=== PATIENT | male | born 1955 | race Caucasian/White ===

== ENCOUNTER 2024-03-02 06:44 | Outpatient (CLI) | payer MEDICARE, OTHER | END 2024-03-02 23:59 | disposition home or self-care (01) | LOC: MRI02 06:44 | PROVIDERS: ATTEND Anesthesiology | DX: M43.13 Spondylolisthesis, cervicothoracic region (principal); M85.88 Other specified disorders of bone density and structure, other site; M47.22 Other spondylosis with radiculopathy, cervical region | CPT/HCPCS: 72141 ==

== ENCOUNTER 2024-05-03 06:12 | Outpatient (CLI) | payer MEDICARE, OTHER | END 2024-05-03 23:59 | disposition home or self-care (01) | LOC: MRI02 06:12 | PROVIDERS: ATTEND Anesthesiology | DX: M51.17 Intervertebral disc disorders with radiculopathy, lumbosacral region (principal); M43.16 Spondylolisthesis, lumbar region; M47.27 Other spondylosis with radiculopathy, lumbosacral region; M48.07 Spinal stenosis, lumbosacral region | CPT/HCPCS: 72148 ==